=== PATIENT | male | born 1975 ===

== ENCOUNTER 2020-12-22 17:34 | Emergency (ER) | payer SELFPAY ==
[2020-12-22] MEDS ORDERED: Sodium Chloride 0.9% 10 ML Syringe FLUSH PRN (17:45)
[2020-12-22] MEDS ORDERED: HYDROmorphone 2 MG/ML SDV IVPUSH ONE ×2 (17:56→18:10)
[2020-12-22] MEDS ORDERED: Albuterol/Ipratropium 3.0-0.5 MG/3 ML Neb Soln NEB ONE (18:00)
[2020-12-22] MEDS ORDERED: Albuterol/Ipratropium 3.0-0.5 MG/3 ML Neb Soln ONE (18:10)
[2020-12-22] MEDS ORDERED: Iopamidol 612 MG/ML 100 ML Bottle IV PRN (18:16)
[2020-12-22] MEDS ORDERED: Sodium Chloride 0.9% 50 ML SDV FLUSH SCH (18:30)
[2020-12-22] MEDS ORDERED: Sodium Chloride 0.9% 1,000 ML IV ONE (18:30)
[2020-12-22] MEDS ORDERED: Morphine 2 MG/ML SYRINGE IVPUSH ONE (18:36)
--- NOTE | 2020-12-23 00:04 | ER ---
HISTORY OF PRESENT ILLNESS: 45-year-old male who comes in by private car with severe left flank pain and severe shortness of breath. He states that the pain started last evening, but it was not severe until about 30 minutes before coming in. 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 He is pointing to an area in the midback area radiating down into the abdomen on the left side. The patient denies any falls or injuries. He tells me he has not been sick lately. PAST MEDICAL HISTORY: Includes kidney stone x1 on the right side. He tells me those symptoms were completely different than what he is feeling today. PAST SURGICAL HISTORY: He also has history of back surgery 3 years ago. MEDICATIONS: He is not on any current medications. ALLERGIES: HE IS NOT ALLERGIC TO ANY MEDICATIONS. OBJECTIVE: GENERAL APPEARANCE: The patient is in obvious respiratory distress. He is only taking small puffs of air. VITAL SIGNS: Reviewed. Initial blood pressure was 164/110, O2 sats were in the 80s and dropping, pulse in the 70s and he is afebrile. LUNGS: Initial lung exam reveals very little air exchange due to the patient not being able to take much of a breath. MUSCULOSKELETAL: He has severe pain in the mid back area on the left side radiating around and down into the abdomen on the left side. ABDOMEN: Soft on the right side. SKIN: Warm and dry. HEENT: Oral mucous membranes moist. Tonsils not enlarged or injected. Pharynx not inflamed. EXTREMITIES: The patient has no peripheral edema involving the lower legs, ankles, or feet. At this point, oxygen was started, an IV was started. The patient was given Dilaudid 1 mg, which brought his pain down slightly to a 7/10, it was at least a 10/10 upon arrival. PA chest was obtained, which shows good lung markings throughout the lung vidales. My initial thought was a possible Pneumo. The pain medicine started to wear off within 15 to 20 minutes. We gave another mg of Dilaudid and once again it helped. At this point, the patient states he had a burning sensation in the penis and he wanted to try to void. He voided a small amount of clear yellow urine. Labs were drawn including a CBC which is normal. PT/INR are okay. D-dimer is less than 100, which is normal. Comprehensive metabolic panel is unremarkable. Troponin is normal. UA is negative. At this point, [facility] was consulted and they agreed to come immediately by chopper to pick the patient up. I consulted with the ER physician at [facility] in [place], Dr. Newsome, who was the closest place who accepted care for this patient with severe shortness of breath and left flank pain. At this point, we do not have an accurate diagnosis. While waiting for [facility], the patient had a catheter put in, which seemed to help with the burning sensation and he was given morphine 2 mg IV. His breathing became much better, more regular, and he looked comfortable at this point. He stated that his pain was still in the 4 to 5 range, but much better than it was before. Upon leaving our facility, the patient's pain just started to increase again, which made him slightly short of breath. [facility] crew is going to medicate the patient once he gets on the chopper. Dz: 1) Severe Left flank pain. 2) SOB. CONDITION ON DISCHARGE: Stable, but guarded. CRS/MODL /[id number] ALLEN
--- NOTE | 2020-12-23 08:29 | CR ---
Date of Service: 12/22/20 Clinical Data: SOB. AP CHEST: Patient has taken a poor inspiration. The heart size is normal. The lungs are clear. No pneumothorax. No pleural effusions. No evidence of acute intrathoracic disease. [id number] MTDD
== END 2020-12-22 19:16 ==
LOC: LB.ED 17:34
DX: R10.9 Unspecified abdominal pain (principal); R06.02 Shortness of breath
CPT/HCPCS: 36415; 51702; 71045; 80053; 81003; 84484; 85025; 85379; 85610; 93005; 96374; 96375; 99284; 99285-25; J1170; J2270; J7030; J7620-GY

== ENCOUNTER 2021-06-03 09:52 | Emergency (ER) | payer SELFPAY ==
--- NOTE | 2021-06-03 15:41 | CT ---
DATE OF SERVICE: 06/03/21 CLINICAL DATA: focal neurological deficits UNENHANCED BRAIN CT: Multislice acquisition through the brain without IV contrast was performed. No masses or mass effect. No intracranial hemorrhage. No evidence of acute or subacute infarct. No osseous abnormalities. IMPRESSION: Negative exam. [id number] MTDD
--- NOTE | 2021-06-14 14:04 | EDM.PDOC ---
ED HPI GENERAL MEDICAL PROBLEM - General Chief Complaint: Headache Stated Complaint: SEVERE HEAD PAIN Time Seen by Provider: 06/03/21 10:30 Source of Information: Reports: Patient - History of Present Illness INITIAL COMMENTS - FREE TEXT/NARRATIVE: Patient had acute onset of head pain located on the superior portion left-hand side of his skull. Patient describes the pain is approximately a 1 to 1-1/2 inch feeling of "a nail being driven into his head ", movement makes the pain worse rest seems to help with the pain, patient has not tried any [id number] medications to deal with the pain. Pain is described as sharp and penetrating. Pain does not radiate anywhere. Pain is described as a 10/10 on the pain scale. This is been going on for 2 days. Patient denies any chest pain, shortness of breath, dizzy lightheaded, syncope or near syncope, loss of consciousness, blurred vision, nausea and vomiting, similar episodes, or recent trauma. Positive for pain upon movement of his head. Onset: Sudden Location: Reports: Head Quality: Reports: Sharp, Stabbing Severity: Severe Worsens with: Reports: Movement Context: Denies: Lifting, Trauma Associated Symptoms: Reports: Headaches. Denies: Chest Pain, Shortness of Breath, Syncope, Weakness - Related Data Allergies Allergy/AdvReac Type Severity Reaction Status Date / Time No Known Allergies Allergy Verified 06/03/21 12:54 Home Meds: Home Meds Acyclovir 800 mg PO 5XDAY 10 Days #50 tablet 06/03/21 [Rx] Indomethacin [Indomethacin ER] 75 mg PO Q8HR 14 Days #42 capsule.er 06/03/21 [Rx] Social & Family History - Caffeine Use Caffeine Use: Reports: Coffee ED ROS GENERAL - Review of Systems Review Of Systems: See Below Constitutional: Denies: Fever, Chills, Malaise, Weakness, Fatigue, Night Sweats HEENT: Reports: No Symptoms Respiratory: Reports: No Symptoms Cardiovascular: Reports: No Symptoms Endocrine: Reports: No Symptoms GI/Abdominal: Reports: No Symptoms : Reports: No Symptoms Musculoskeletal: Reports: No Symptoms Skin: Denies: Diaphoresis, Rash, Wound, Change in Color Neurological: Reports: Headache, Other (EOM cause exacerbation of pain, and instant tearing of the eyes). Denies: Confusion, Dizziness, Numbness, Seizure, Syncope Psychiatric: Reports: No Symptoms Hematologic/Lymphatic: Reports: No Symptoms Immunologic: Reports: No Symptoms ED EXAM, GENERAL - Physical Exam Exam: See Below Exam Limited By: No Limitations General Appearance: Moderate Distress Eye Exam: Bilateral Eye: EOMI (Positive pain on movement especially when pupils reach the lateral edges of visual field), Normal Inspection, PERRL Ears: Normal External Exam, Normal Canal, Hearing Grossly Normal, Normal TMs Nose: Normal Inspection, Normal Mucosa, No Blood Throat/Mouth: Normal Inspection, Normal Lips, Normal Teeth, Normal Gums, Normal Oropharynx, Normal Voice, No Airway Compromise Head: Atraumatic, Normocephalic, Other (Tenderness noted just left of midline on superior portion of the skull, no deformity, depressions or skin changes noted above tenderness) Neck: Normal Inspection, Supple, Non-Tender, Full Range of Motion Respiratory/Chest: No Respiratory Distress, Lungs Clear, Normal Breath Sounds, No Accessory Muscle Use Cardiovascular: Normal Peripheral Pulses, Regular Rate, Rhythm, No Edema, No Gallop, No JVD, No Murmur, No Rub GI/Abdominal: Soft, Non-Tender, No Distention, No Mass Back Exam: Normal Inspection, Full Range of Motion, NT Extremities: Normal Inspection, Normal Range of Motion, Non-Tender, Normal Capillary Refill, No Pedal Edema Neurological: Alert, Oriented, CN II-XII Intact, Normal Cognition, Normal Gait, Normal Reflexes, No Motor/Sensory Deficits Psychiatric: Normal Affect, Normal Mood Skin Exam: Warm, Dry, Intact, Normal Color, No Rash Course - Orders/Labs/Meds Labs: Laboratory Tests 06/03/21 06/03/21 06/03/21 Range/Units 11:23 11:23 12:09 WBC 4.8 D (4.0-11.0) K/uL RBC 4.77 (4.50-6.50) M/uL Hgb 14.9 (13.0-18.0) g/dL Hct 43.5 (40.0-54.0) % MCV 91 (76-96) fL MCH 31.2 (27.0-32.0) pg MCHC 34.3 (31.0-35.0) g/dL RDW 13.9 (11.0-16.0) % Plt Count 198 (150-400) K/uL MPV 10.0 (6.0-10.0) fL Neut % (Auto) 60.6 (45.0-70.0) % Lymph % (Auto) 23.3 (20.0-40.0) % Prairie % (Auto) 15.5 H (3.0-10.0) % Eos % (Auto) 0.4 L (1.0-5.0) % Baso % (Auto) 0.2 (0.0-0.5) % Neut # (Auto) 2.89 (2.00-7.50) K/uL Lymph # (Auto) 1.11 L (1.50-4.00) K/uL Prairie # (Auto) 0.74 (0.20-0.80) K/uL Eos # (Auto) 0.02 L (0.04-0.40) K/uL Baso # (Auto) 0.01 L (0.02-0.10) K/uL ESR 2 (0-15) mm/hr Sodium (136-145) mmol/L Potassium (3.5-5.1) mmol/L Chloride (98-107) mmol/L Carbon Dioxide (21.0-32.0) mmol/L Anion Gap (5.0-15.0) mmol/L BUN (8-26) mg/dL Creatinine (0.70-1.30) mg/dL Est Cr Clr Drug Dosing Estimated GFR (MDRD) (>60) MLS/MIN BUN/Creatinine Ratio (6-25) Glucose (74-100) mg/dL Calcium (8.5-10.1) mg/dL Total Bilirubin (0.0-1.0) mg/dL AST (15-37) U/L ALT (12-78) U/L Alkaline Phosphatase (46-116) U/L C-Reactive Protein < 0.5 (0.0-3.0) mg/L Total Protein (6.4-8.2) g/dL Albumin (3.4-5.0) g/dL Globulin (2.2-4.2) g/dL Albumin/Globulin Ratio (0.8-2.0) 06/03/21 Range/Units 12:09 WBC (4.0-11.0) K/uL RBC (4.50-6.50) M/uL Hgb (13.0-18.0) g/dL Hct (40.0-54.0) % MCV (76-96) fL MCH (27.0-32.0) pg MCHC (31.0-35.0) g/dL RDW (11.0-16.0) % Plt Count (150-400) K/uL MPV (6.0-10.0) fL Neut % (Auto) (45.0-70.0) % Lymph % (Auto) (20.0-40.0) % Prairie % (Auto) (3.0-10.0) % Eos % (Auto) (1.0-5.0) % Baso % (Auto) (0.0-0.5) % Neut # (Auto) (2.00-7.50) K/uL Lymph # (Auto) (1.50-4.00) K/uL Prairie # (Auto) (0.20-0.80) K/uL Eos # (Auto) (0.04-0.40) K/uL Baso # (Auto) (0.02-0.10) K/uL ESR (0-15) mm/hr Sodium 136 (136-145) mmol/L Potassium 4.0 (3.5-5.1) mmol/L Chloride 105 (98-107) mmol/L Carbon Dioxide 26.8 (21.0-32.0) mmol/L Anion Gap 8.2 (5.0-15.0) mmol/L BUN 14 D (8-26) mg/dL Creatinine 0.90 (0.70-1.30) mg/dL Est Cr Clr Drug Dosing TNP Estimated GFR (MDRD) > 60 (>60) MLS/MIN BUN/Creatinine Ratio 15.6 (6-25) Glucose 102 H (74-100) mg/dL Calcium 8.6 (8.5-10.1) mg/dL Total Bilirubin 0.3 (0.0-1.0) mg/dL AST 24 (15-37) U/L ALT 30 (12-78) U/L Alkaline Phosphatase 64 (46-116) U/L C-Reactive Protein (0.0-3.0) mg/L Total Protein 7.4 (6.4-8.2) g/dL Albumin 4.2 (3.4-5.0) g/dL Globulin 3.2 (2.2-4.2) g/dL Albumin/Globulin Ratio 1.3 (0.8-2.0) - Radiology Interpretation Free Text/Narrative:: Read as normal exam Departure - Departure Time of Disposition: 13:50 Disposition: Home, Self-Care 01 Condition: Good Clinical Impression: Hemicrania - Discharge Information *PRESCRIPTION DRUG MONITORING PROGRAM REVIEWED*: No *COPY OF PRESCRIPTION DRUG MONITORING REPORT IN PATIENT DARBY: No (Advised to follow-up with primary care provider, and if episodes continue to get referral to neurology through primary care provider.) Prescriptions: Acyclovir 800 mg PO 5XDAY 10 Days #50 tablet Indomethacin [Indomethacin ER] 75 mg PO Q8HR 14 Days #42 capsule.er Referrals: PCP,None [Primary Care Provider] - Forms: ED Department Discharge Additional Instructions: Take acyclivir 800mg 5x day for 10 days. Take Indomethacin 75mg 3 times a day for 14 days as needed for head ache. Return to MD or ER if symptoms persisit or increase. - Problem List & Annotations (1) Hemicrania SNOMED Code(s): 356720403 Code(s): G43.909 - MIGRAINE, UNSP, NOT INTRACTABLE, WITHOUT STATUS MIGRAINOSUS Status: Acute Annotation/Comment:: I considered broad differential diagnosis for this patient including tension, migraine, analgesic rebound, occipital neuralgia, hemicrania, etc. Other less common but serious causes considered including meningitis, encephalitis, subarachnoid bleed, stroke, tumor, etc. Patient has no signs of serious head etiologies at this point advanced imaging was conducted and read by radiologist as a normal exam. Patient's questions were answered and they feel improved after interventions. Supportive outpatient management is therefore indicated, headache precautions given for home. Patient was instructed to follow-up with primary care provider and to seek a referral to a neurologist through the primary care provider if episodes continue. A working diagnosis that was consistent signs and symptoms consistent with hemicrania. - Problem List Review Problem List Initiated/Reviewed/Updated: Yes
== END 2021-06-03 13:49 | disposition home or self-care (01) ==
LOC: LB.ED 09:52
DX: G44.039 Episodic paroxysmal hemicrania, not intractable (principal)
CPT/HCPCS: 36415; 70450; 80053; 85025; 85651; 86140; 99284-25